=== PATIENT | female | born 2005 | race Caucasian/White ===

== ENCOUNTER 2024-05-20 20:50 | Emergency (ER) | payer MEDICAID ==
[~2024-05-20] VITALS: Ht 172.7 cm; Wt 69.0 kg
[2024-05-20] MEDS ORDERED: CORTISPORIN OTI10 M2 AD (21:57)
[2024-05-20 22:05] VITALS: BP 133/76
== END 2024-05-20 22:05 | disposition home or self-care (01) ==
LOC: ED 20:50
DX: H60.91 Unspecified otitis externa, right ear (principal)